=== PATIENT | male | born 1990 | race African-American/Black ===

== ENCOUNTER 2017-07-09 19:10 | Emergency (ER) | payer SELFPAY ==
[2017-07-09 19:12] VITALS: BP 158/97; PULSE 76; RESP 15; TEMP 97.9; O2SAT 98
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
== END 2017-07-09 21:48 | disposition left against medical advice (07) ==
LOC: NEPK 19:10
DX: R51 Headache (principal); J00 Acute nasopharyngitis [common cold]; V47.6XXA Car passenger injured in collision with fixed or stationary object in traffic accident, initial encounter
CPT/HCPCS: 99281

== ENCOUNTER 2017-07-10 12:08 | Emergency (ER) | payer BC ==
[~2017-07-10] VITALS: Ht 190.5 cm; Wt 95.0 kg
[2017-07-10 12:10] VITALS: BP 133/89; PULSE 65; RESP 14; TEMP 99; O2SAT 99
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
== END 2017-07-10 14:06 | disposition left against medical advice (07) ==
LOC: NEPK 12:08
DX: Z02.79 Encounter for issue of other medical certificate (principal)
CPT/HCPCS: 99281